=== PATIENT | female | born 1985 | race Caucasian/White ===

== ENCOUNTER 2018-05-01 01:32 | Emergency (ER) | payer BC ==
[2018-05-01] MEDS ORDERED: Metoclopramide IV* 5 MG/ML 2 ML VIAL IV SLOW PU ONE (02:03)
[2018-05-01] MEDS ORDERED: Morphine INJ* 2 MG/ML 1 ML SYRINGE (TWO MG - NEW SYRINGE VERSION) IV ONE (02:03)
[2018-05-01] MEDS ORDERED: Methylergonovine INJ* 0.2 MG/ML 1ML AMP IM ONE (02:04)
--- NOTE | 2018-05-01 02:13 | ED ---
GI/ HPI - HPI Summary HPI Summary: Patient is a 32 y/o F w/ c/o vaginal bleeding and cramping onsetting today around midnight. Prior to this, patient was experiencing some spotting onsetting last week. On triage, pain is rated 10/10 and nothing is noted to aggravate/alleviate Sx. While urinating in cup in ED, patient notes that she passed a piece of tissue. Home medications and allergies are reviewed. She reports first appointment with OBGYN was upcoming. - History of Current Complaint Chief Complaint: EDVaginalBleeding Time Seen by Provider: 05/01/18 01:48 Stated Complaint: 12 WEEKS PREG AND BLEEDING HEAVILY Hx Obtained From: Patient Onset/Duration: Started Hours Ago - onset midnight today, Started Weeks Ago - initial spotting, Still Present Timing: Constant Current Severity: Severe - 10/10 Pain Intensity: 10 Associated Signs and Symptoms: Positive: Other: - cramping, heavy vaginal bleeding Additional Signs & Symptoms: Positive: Other: - cramping, heavy vaginal bleeding Aggravating Factor(s): Nothing Alleviating Factor(s): Nothing - Allergy/Home Medications Allergies/Adverse Reactions: Allergies Allergy/AdvReac Type Severity Reaction Status Date / Time Penicillins Allergy Unknown Verified 05/01/18 01:36 Reaction Details Home Medications: Home Medications NK [No Home Medications Reported] 05/01/18 [History Confirmed 05/01/18] PMH/Surg Hx/FS Hx/Imm Hx Sensory History: Denies: Hx Legally Blind, Hx Deafness Opthamlomology History: Denies: Hx Legally Blind EENT History: Denies: Hx Deafness Infectious Disease History: No Infectious Disease History: Denies: Traveled Outside the [place] in Last 30 Days - Family History Known Family History: Negative: Blood Disorder - Social History Alcohol Use: None Substance Use Type: Reports: None Smoking Status (MU): Never Smoked Tobacco Review of Systems Negative: Fever - on vitals, temperature is 98 F Positive: other - heavy vaginal bleeding, cramping All Other Systems Reviewed And Are Negative: Yes Physical Exam - Summary Physical Exam Summary: VITAL SIGNS: Reviewed. GENERAL: Patient is a well-developed and nourished female who is lying comfortable in the stretcher. Patient is not in any acute respiratory distress. HEAD AND FACE: No signs of trauma. No ecchymosis, hematomas or skull depressions. No sinus tenderness. EYES: PERRLA, EOMI x 2, No injected conjunctiva, no nystagmus. EARS: Hearing grossly intact. Ear canals and tympanic membranes are within normal limits. MOUTH: Oropharynx within normal limits. NECK: Supple, trachea is midline, no adenopathy, no JVD, no carotid bruit, no c- spine tenderness, neck with full ROM. CHEST: Symmetric, no tenderness at palpation LUNGS: Clear to auscultation bilaterally. No wheezing or crackles. CVS: Regular rate and rhythm, S1 and S2 present, no murmurs or gallops appreciated. ABDOMEN: Soft, non-tender. No signs of distention. No rebound no guarding, and no masses palpated. Bowel sounds are normal. EXTREMITIES: FROM in all major joints, no edema, no cyanosis or clubbing. NEURO: Alert and oriented x 3. No acute neurological deficits. Speech is normal and follows commands. SKIN: Dry and warm PELVIC EXAM: Exam was done in presence of female ED staff. Uterus is 8-10 weeks in size. Cervix is gross and at posterior there is a mild amount of blood. Minimal oozing in cervix. No content is noted in vaginal canal. Triage Information Reviewed: Yes Vital Signs On Initial Exam: Initial Vitals Temp Pulse Resp BP Pulse Ox 98 F 68 16 111/80 100 05/01/18 01:36 05/01/18 01:36 05/01/18 01:36 05/01/18 01:36 05/01/18 01:36 Vital Signs Reviewed: Yes Diagnostics - Vital Signs Vital Signs Temp Pulse Resp BP Pulse Ox 05/01/18 02:00 76 99 05/01/18 01:51 84 100 05/01/18 01:49 87 123/93 99 05/01/18 01:36 98 F 68 16 111/80 100 - Laboratory Result Diagrams: 05/01/18 02:14 05/01/18 02:14 Lab Statement: Any lab studies that have been ordered have been reviewed, and results considered in the medical decision making process. Re-Evaluation - Re-Evaluation First Eval Re-Evaluation Time: 02:04 Comment: Gasngo Fady was contacted about patient. He stated that patient does not meet criteria to come in to do US at present hours. Second Eval Re-Evaluation Time: 03:44 Comment: Discussed results of labs and consult with Dr. Eagle. She will be discharged to home and follow up with Dr. Eagle tomorrow. Patient is agreeable with this plan. GIGU Course/Dx - Course Assessment/Plan: Patient is a 32 y/o F w/ c/o vaginal bleeding and cramping onsetting today around midnight. Prior to this, patient was experiencing some spotting onsetting last week. On triage, pain is rated 10/10 and nothing is noted to aggravate/alleviate Sx. While urinating in cup in ED, patient notes that she passed a piece of tissue. Home medications and allergies are reviewed. She reports first appointment with OBGYN was upcoming. Pelvic Exam was done in presence of female ED staff. Uterus is 8-10 weeks in size. Cervix is gross and at posterior there is a mild amount of blood. Minimal oozing in cervix. No content is noted in vaginal canal. No other abnormal physical exam findings noted. Gasngo Fady was contacted about patient. He stated that patient does not meet criteria to come in to do US at present hours. Patient is A+ blood type, negative antibody screen. Labs showed RDW 17, glucose 111, AST 12, and Beta HCG Quant 49385.00. Dr. Eagle was consulted on patient's case at 336. She recommends giving patient 600 mg of citotec and having patient follow up with her tomorrow. This plan was discussed with patient and she was agreeable. During ED course, patient was given morphine 4 mg IV ED ONCE ONE, Reglan 10 mg IV SLOW PU ONCE ONE, Lactated Ringers 100 ml bag, and methergine .2 mg IM ONCE ONE and 600 mg citotec. She was diagnosed with spontaneous . - Diagnoses Provider Diagnoses: Spontaneous - Physician Notifications Discussed Care Of Patient With: Raquel Eagle Time Discussed With Above Provider: 03:37 Instructed by Provider To: Other - Dr. Eagle was consulted on patient's case at 336. She recommends giving patient 600 mg of citotec and having patient follow up with her tomorrow. Discharge - Sign-Out/Discharge Documenting (check all that apply): Patient Departure - discharge - Discharge Plan Condition: Stable Disposition: HOME Patient Education Materials: Miscarriage (ED) Forms: *Work Release Referrals: Raquel Eagle MD [Medical Doctor] - 1 Day Additional Instructions: RETURN TO ED FOR ANY CHANGING OR WORSENING SYMPTOMS. FOLLOW UP WITH OBGYN TOMORROW. - Attestation Statements Document Initiated by Scribe: Yes Documenting Scribe: Darrel Garcia Provider For Whom Scribe is Documenting (Include Credential): Tiera Yi MD Scribe Attestation: IDarrel, scribed for Tiera Yi MD on 05/01/18 at 0442.
[2018-05-01 02:26] LABS: ABS Basophils 0.1 10^3/ul (0-0.2); ABS Eosinophils 0.1 10^3/ul (0-0.6); ABS Lymphocytes 1.5 10^3/ul (1.0-4.8); ABS Monocytes 0.4 10^3/ul (0-0.8); ABS Neutrophils 8.6 10^3/ul (1.5-7.7); ABS Nucleated RBC 0 10^3/ul; Eosinophil % 0.9 % (0-6); Hematocrit 37 % (35-47); Hemoglobin 12.8 g/dl (12.0-16.0); Lymphocyte % 14.4 % (25-47); Mean Corpuscular HGB Conc 35 g/dl (31-36); Mean Corpuscular Hemoglobin 29 pg (27-31); Mean Corpuscular Volume 83 fL (80-97); Mean Platelet Volume 8.6 um3 (7.4-10.4); Nucleated Red Blood Cells % 0; Platelet Count 171 10^3/ul (150-450); Red Blood Count 4.46 10^6/ul (4.00-5.40); Red Cell Distribution Width 17 % (10.5-15); White Blood Count 10.7 10^3/ul (3.5-10.8)
[2018-05-01 02:40] LABS: INR 0.98 (0.77-1.02)
[2018-05-01] MEDS ORDERED: Misoprostol TAB* 200 MCG VAGINAL ONE (03:39)
[2018-05-01 04:20] VITALS: BP 113/78
== END 2018-05-01 04:19 | disposition home or self-care (01) ==
LOC: ED 01:32
DX: O03.9 Complete or unspecified spontaneous abortion without complication (principal); Z88.0 Allergy status to penicillin
CPT/HCPCS: 36415; 80053; 83605; 84702; 85025; 85610; 85730; 86850; 86900; 86901; 88305; 96372; 96374; 96375; 96376; 99283; A9270-GY; J2210; J2270; J2765

== ENCOUNTER 2018-11-15 09:27 | Emergency (ER) | payer BC ==
[2018-11-15 09:39] VITALS: BP 134/88
--- NOTE | 2018-11-15 11:49 | UC ---
Eye Complaint HPI - HPI Summary HPI Summary: 33-year-old female presents with onset of left eye redness, itchiness, and drainage last evening. States she awoke this morning when the eye crusted shut. Denies fever, chills, URI symptoms, visual disturbances, eye pain or swelling. Patient does not wear contacts. - History of Current Complaint Chief Complaint: UCEar Stated Complaint: EYE ISSUE Time Seen by Provider: 11/15/18 11:48 Hx Obtained From: Patient Hx Last Menstrual Period: 10/16/18 Pain Intensity: 5 - Allergies/Home Medications Allergies/Adverse Reactions: Allergies Allergy/AdvReac Type Severity Reaction Status Date / Time Penicillins Allergy Unknown Verified 11/15/18 09:39 Reaction Details PMH/Surg Hx/FS Hx/Imm Hx Previously Healthy: Yes - Denies significant PMH - Surgical History Surgical History: None - Family History Known Family History: Positive: Non-Contributory - Social History Occupation: Employed Full-time Lives: With Family Alcohol Use: None Substance Use Type: None Smoking Status (MU): Never Smoked Tobacco Review of Systems All Other Systems Reviewed And Are Negative: Yes Physical Exam - Summary Physical Exam Summary: GENERAL APPEARANCE: Well developed, well nourished, alert and cooperative, and appears to be in no acute distress. EYES: Left eye conjunctival erythema. No drainage. Vision is grossly intact. EARS: External auditory canals and tympanic membranes clear, hearing grossly intact. NOSE: No nasal discharge. THROAT: Pharynx normal No tonsilar inflammation, swelling, exudate, or lesions. Uvula midline. Oral cavity normal. Teeth and gingiva in good general condition. NECK: Neck supple, non-tender without lymphadenopathy. CARDIAC: Normal S1 and S2. No S3, S4 or murmurs. Rhythm is regular. There is no peripheral edema, cyanosis or pallor. Extremities are warm and well perfused. Capillary refill is less than 2 seconds. Peripheral pulses intact. LUNGS: Clear to auscultation without rales, rhonchi, wheezing or diminished breath sounds. ABDOMEN: Positive bowel sounds. Soft, nondistended, nontender. No guarding or rebound. No masses or hepatosplenomegally. MUSKULOSKELETAL: ROM intact to all extremities. No joint erythema or tenderness. Normal muscular development. Normal gait. SKIN: Skin normal color, texture and turgor with no lesions or eruptions. Triage Information Reviewed: Yes Vital Signs: Initial Vital Signs Temp 98.4 F 11/15/18 09:34 Pulse 90 11/15/18 09:34 Resp 17 11/15/18 09:34 BP 134/88 11/15/18 09:34 Pulse Ox 99 11/15/18 09:34 Vital Signs Reviewed: Yes Eye Complaint Course/Dx - Course Course Of Treatment: 33-year-old female presents with onset of left eye redness, itchiness, and drainage last evening. States she awoke this morning when the eye crusted shut. Denies fever, chills, URI symptoms, visual disturbances, eye pain or swelling. Patient does not wear contacts. Afebrile. Vital signs stable. Exam was remarkable for some left eye conjunctival erythema. Will treat for bacterial conjunctivitis using Polytrim ophthalmic 1 drop 4 times a day 5 days. She is to return here or follow-up with her primary care provider in 3 days if symptoms do not improve. Anticipatory guidance and warning symptoms reviewed with the patient. Verbalizes understanding and agrees with plan of care. - Differential Dx/Diagnosis Differential Diagnosis/HQI/PQRI: Conjunctivitis, Periorbital Cellulitis, Orbital Cellulitis, Uveitis Provider Diagnosis: Conjunctivitis, left eye Discharge - Sign-Out/Discharge Documenting (check all that apply): Patient Departure All imaging exams completed and their final reports reviewed: No Studies - Discharge Plan Condition: Stable Disposition: HOME Prescriptions: Polymyx/Trimethoprim OPTH* [Polytrim OPHTH*] 1 drop LEFT EYE QID #1 btl Patient Education Materials: Conjunctivitis (ED) Forms: *Work Release Referrals: No Primary Care Phys,NOPCP [Primary Care Provider] - Additional Instructions: Your history and exam are consistent with a bacterial conjunctivitis of the left eye. Start Polytrim ophthalmic drops 1 drop into the affected eye 4 times a day for 5 days. To avoid reinfection or spreading infection: * Use washcloths and towels once then launder. * Do not share washcloths or towels with others. * Change your pillow case each morning until you have finished treatment. * You should throw out any eye makeup, especially mascara, and use a new one once you have finished treatment. Return here of follow up here or with your primary care provider in 3 days if no improvement. Seek immediate medical attention in the emergency room if you develop fever greater than 100.5 F, have pain or swelling of the eye, visual disturbances, loss of vision, or any worsening of symptoms. - Billing Disposition and Condition Condition: STABLE Disposition: Home
== END 2018-11-15 12:20 | disposition home or self-care (01) ==
LOC: UCEAST 09:27
DX: H10.9 Unspecified conjunctivitis (principal); Z88.0 Allergy status to penicillin
CPT/HCPCS: 99212; G0463

== ENCOUNTER 2019-07-30 13:13 | Emergency (ER) | payer SELFPAY ==
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
[2019-07-30 13:39] VITALS: BP 138/87
[2019-07-30 18:32] LABS: Hepatitis B Surface Antigen Nonreactive (Nonreactive)
[2019-07-30 18:49] LABS: Hepatitis B Surface Ab Not Immune (Immune); Hepatitis C Antibody Negative (Negative)
[2019-07-30 19:28] LABS: HIV 4th Generation Nonreactive (Nonreactive)
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
== END 2019-07-30 14:06 | disposition home or self-care (01) ==
LOC: UCEAST 13:13
DX: S51.851A Open bite of right forearm, initial encounter (principal); Z88.0 Allergy status to penicillin; W50.3XXA Accidental bite by another person, initial encounter; Y92.9 Unspecified place or not applicable
CPT/HCPCS: 36415; 86706; 86803; 87340; 87389; 99211; G0463

== ENCOUNTER 2020-09-12 12:38 | Inpatient (IN) ==
[2020-09-12] MEDS ORDERED: Magnesium Sulf 4 GM/100 ML IV 4,000 MG/100 ML BAG IVPB ONE (13:10)
[2020-09-12] MEDS ORDERED: ceFOXitin 2 GM IVPREMIX 2 GM/50 ML BAG IVPB ONE (13:10)
[2020-09-12] MEDS ORDERED: Lactated Ringers 1000 ml BAG 1,000 ML IV ONE (13:10)
[2020-09-12] MEDS ORDERED: Buffered Lidocaine 1% SYRIN 1 ml INTRADERM ONE (13:10)
[2020-09-12 13:57] LABS: ABS Lymphocytes 1.5 10^3/ul (1.0-4.8); ABS Monocytes 0.5 10^3/ul (0-0.8); ABS Neutrophils 10.7 10^3/ul (1.5-7.7); Eosinophil % 0.2 %; Hematocrit 32 % (35-47); Hemoglobin 10.7 g/dL (12.0-16.0); Lymphocyte % 11.7 %; Mean Corpuscular HGB Conc 33 g/dL (31-36); Mean Corpuscular Hemoglobin 25 pg (27-31); Mean Corpuscular Volume 75 fL (80-97); Mean Platelet Volume 8.9 fL (7.4-10.4); Platelet Count 205 10^3/uL (150-450); Red Blood Count 4.34 10^6 /uL (3.70-4.87); Red Cell Distribution Width 19 % (10-15); White Blood Count 12.8 10^3/uL (3.5-10.8)
[2020-09-12] MEDS ORDERED: Magnesium Sulfate OB PREMIX 40 GM/1,000 ML BAG IVPB SCH (14:00)
[2020-09-12] MEDS ORDERED: Lactated Ringers 1000 ml BAG 1,000 ML IV SCH ×2 (14:00→22:00)
[2020-09-12 14:07] LABS: Albumin 3.3 g/dL (3.2-5.2); Albumin/Globulin Ratio 1.1 (1-3); BUN/Creatinine Ratio 14.5 (8-20); Calcium 8.6 mg/dL (8.6-10.3); EGFR African American 104.2 (>60); EGFR Non-African American 86.1 (>60); Globulin 3.1 g/dL (2-4); Potassium 3.8 mmol/L (3.5-5.0); Total Bilirubin 0.4 mg/dL (0.2-1.0); Total Protein 6.4 g/dL (6.4-8.9); Uric Acid 4.8 mg/dL (2.3-6.6)
[2020-09-12 14:10] LABS: Urine Benzodiazepine Screen None Detected (None Detect); Urine Cannabinoids Screen None Detected (None Detect); Urine Opiates Screen None Detected (None Detect)
[2020-09-12 14:28] LABS: Activated Partial Thrombo Time 23.3 seconds (26.0-38.0); INR 0.94 (0.82-1.09)
[2020-09-12 14:48] LABS: Platelet Count 211 10^3/ul (150-450)
[2020-09-12 15:31] LABS: Schistocytes ABSENT
[2020-09-12 16:19] LABS: Fibrinogen 469.2 mg/dL (110.8-404.3)
[2020-09-12] MEDS ORDERED: D5LR 1000 ml BAG 1,000 ML IV SCH (19:00)
[2020-09-12] MEDS ORDERED: Sodium Citrate/Citric Acid LIQ 15 ML UDC ONE (19:09)
[2020-09-12] MEDS ORDERED: fentaNYL 100 mcg/2 ml 50 MCG/ML VIAL ONE (19:31)
[2020-09-12] MEDS ORDERED: Morphine PF AMP (0.5MG/ML) 5 MG/10 ML AMP ONE (19:32)
[2020-09-12] MEDS ORDERED: Carboprost Tromethamine 250 mcg 1 ml VIAL ONE (19:39)
[2020-09-12] MEDS ORDERED: Phenylephrine 40 mcg/mL 10mL (400mcg) SYRINGE ONE (19:57)
[2020-09-12] MEDS ORDERED: Ondansetron 4 mg VIAL 2 MG/ML 2 ml VIAL ONE (20:02)
[2020-09-12] MEDS ORDERED: EPHEDrine (Pressors) 50 MG/ML VIAL ONE (20:04)
[2020-09-12] MEDS ORDERED: Oxytocin 10 UNITS/ML 1 ML VIAL ONE (20:13)
[2020-09-12] MEDS ORDERED: fentaNYL 100 mcg/2 ml 50 MCG/ML VIAL IV PRN (20:42)
[2020-09-12] MEDS ORDERED: Acetaminophen IV 1 GM/100ML 1,000 MG/100 ML VIAL IVPB ONE (20:42)
[2020-09-12] MEDS ORDERED: Naloxone 0.4 mg VIAL 0.4 mg/ml 1 ml VIAL IV PRN ×2 (20:42→20:43)
[2020-09-12] MEDS ORDERED: Metoclopramide 5 MG/ML VIAL (10 mg) IV PRN (20:43)
[2020-09-12] MEDS ORDERED: Ondansetron 4 mg VIAL 2 MG/ML 2 ml VIAL IV PRN (20:43)
[2020-09-12] MEDS ORDERED: Naloxone 4 mg VIAL (10 ml) 2 MG in NS 0.9% 250 ml 250 ML IV PRN (20:43)
[2020-09-12] MEDS ORDERED: oxyCODONE/Acetamin 5/325 mg TAB PO PRN (20:43)
[2020-09-12] MEDS ORDERED: Oxytocin in LR 20 UNITS/1,000 ML BAG IVPB ONE (21:30)
[2020-09-12] MEDS ORDERED: Glycerin ADULT 2.4 gm SUPP PR PRN (21:54)
[2020-09-12] MEDS ORDERED: Witch Hazel PAD JAR TOPICAL PRN (21:54)
[2020-09-12] MEDS ORDERED: Dibucaine 1% OINT 28.35 GM TUBE PR PRN (21:54)
[2020-09-12] MEDS ORDERED: Oxytocin in LR 20 UNITS/1,000 ML BAG IVPB SCH (22:00)
[2020-09-13 06:07] LABS: ABS Lymphocytes 1.2 10^3/ul (1.0-4.8); ABS Monocytes 0.6 10^3/ul (0-0.8); ABS Neutrophils 8.7 10^3/ul (1.5-7.7); Eosinophil % 0.4 %; Hematocrit 25 % (35-47); Hemoglobin 8.5 g/dL (12.0-16.0); Lymphocyte % 11.7 %; Mean Corpuscular HGB Conc 34 g/dL (31-36); Mean Corpuscular Hemoglobin 25 pg (27-31); Mean Corpuscular Volume 75 fL (80-97); Mean Platelet Volume 8.5 fL (7.4-10.4); Platelet Count 164 10^3/uL (150-450); Red Blood Count 3.35 10^6 /uL (3.70-4.87); Red Cell Distribution Width 18 % (10-15); White Blood Count 10.5 10^3/uL (3.5-10.8)
[2020-09-15 09:01] VITALS: BP 113/70
== END 2020-09-15 14:45 | disposition home or self-care (01) ==
LOC: MCHOBOUT 12:38 → MCHOB 13:10
PROVIDERS: ADMIT Obstetrics & Gynecology; ATTEND Obstetrics & Gynecology

== ENCOUNTER 2023-04-25 05:28 | Inpatient (IN) ==
[2023-04-25] MEDS ORDERED: ceFOXitin 2 GM IVPREMIX 2 GM/50 ML BAG IVPB ONE (06:00)
[2023-04-25] MEDS ORDERED: Lactated Ringers 1000 ml BAG 1,000 ML IV ONE (06:00)
[2023-04-25] MEDS ORDERED: Buffered Lidocaine 1% SYRIN 1 ml INTRADERM ONE (06:00)
[2023-04-25] MEDS ORDERED: Sodium Citrate/Citric Acid LIQ 15 ML UDC PO ONE (06:00)
[2023-04-25 06:54] LABS: ABS Eosinophils 0.1 10^3/uL (0.0-0.5); ABS Lymphocytes 1.6 10^3/uL (1.0-4.8); ABS Monocytes 0.5 10^3/uL (0.0-0.9); ABS Neutrophils 6.6 10^3/uL (1.5-7.6); Eosinophil % 0.8 %; Hematocrit 34.7 % (35-45); Hemoglobin 12.4 g/dL (11.5-14.3); Lymphocyte % 18.3 %; Mean Corpuscular Hemoglobin 31.1 pg (27-33); Mean Corpuscular Hgb Conc 35.6 g/dL (31-36); Mean Corpuscular Volume 87.2 fL (80-97); Mean Platelet Volume 8.8 fL (7.5-11.2); Platelet Count 158 10^3/uL (150-450); Red Blood Count 3.98 10^6/uL (3.63-4.92); Red Cell Distribution Width 14.3 % (12-17); White Blood Count 8.8 10^3/uL (3.8-11.8)
[2023-04-25] MEDS ORDERED: Lactated Ringers 1000 ml BAG 1,000 ML IV SCH ×2 (07:00→11:00)
[2023-04-25] MEDS ORDERED: Oxytocin 10 UNITS/ML 1 ML VIAL ONE (08:19)
[2023-04-25] MEDS ORDERED: Ondansetron 4 mg VIAL 2 MG/ML 2 ml VIAL ONE (08:20)
[2023-04-25] MEDS ORDERED: Phenylephrine 40 mcg/mL 10mL (400mcg) SYRINGE ONE (08:20)
[2023-04-25] MEDS ORDERED: Bupivacaine 0.5% SDV PF 30ML VIAL ONE (08:20)
[2023-04-25] MEDS ORDERED: Morphine PF AMP (0.5MG/ML) 5 MG/10 ML AMP ONE (08:21)
[2023-04-25] MEDS ORDERED: Dexamethasone IV 4 MG/ML VIAL 1 ml VIAL ONE (08:46)
[2023-04-25] MEDS: Oxytocin in LR 20,000 MILLI.UNIT/1,000 ML BAG IV SCH ×2 (09:10→13:42)
[2023-04-25] MEDS ORDERED: fentaNYL 100 mcg/2 ml 50 MCG/ML VIAL ONE (09:30)
[2023-04-25] MEDS ORDERED: Acetaminophen IV 1 GM/100ML 1,000 MG/100 ML BAG IV ONE (09:33)
[2023-04-25 10:04] LABS: Urine Benzodiazepine Screen None Detected (None Detect); Urine Cannabinoids Screen None Detected (None Detect); Urine Opiates Screen None Detected (None Detect)
[2023-04-25] MEDS ORDERED: Naloxone 0.4 mg VIAL 0.4 mg/ml 1 ml VIAL IV PRN (10:32)
[2023-04-25] MEDS ORDERED: Ondansetron 4 mg VIAL 2 MG/ML 2 ml VIAL IV PRN (10:32)
[2023-04-25] MEDS ORDERED: Naloxone 0.4 mg VIAL 0.4 mg/ml 1 ml VIAL IV PUSH PRN (10:32)
[2023-04-25] MEDS ORDERED: Acetaminophen IV 1 GM/100ML 1,000 MG/100 ML BAG IV PRN (10:32)
[2023-04-25] MEDS ORDERED: Metoclopramide 5 MG/ML VIAL (10 mg) IV PRN (10:32)
[2023-04-25] MEDS ORDERED: Witch Hazel PAD JAR TOPICAL PRN (10:54)
[2023-04-25] MEDS ORDERED: Glycerin ADULT 2.4 gm SUPP PR PRN (10:54)
[2023-04-25 11:27] LABS: Urine Appearance Clear; Urine Bilirubin Negative (Negative); Urine Blood 1+ (Negative); Urine Color Yellow; Urine Glucose Negative (Negative); Urine Ketones Negative (Negative); Urine Nitrite Negative (Negative); Urine Protein Negative (Negative); Urine Specific Gravity 1.018 (1.002-1.030); Urine Urobilinogen Negative (Negative)
[2023-04-25 11:42] LABS: Urine Bacteria Absent (Absent); Urine Red Blood Cell 1+(3-5/hpf) (Absent); Urine Squamous Epithelial Cell Present (Absent); Urine White Blood Cell Trace(0-5/hpf) (Absent)
[2023-04-26 06:34] LABS: ABS Lymphocytes 1.5 10^3/uL (1.0-4.8); ABS Monocytes 0.4 10^3/uL (0.0-0.9); ABS Neutrophils 6.4 10^3/uL (1.5-7.6); Eosinophil % 0.3 %; Hematocrit 29.5 % (35-45); Hemoglobin 10.5 g/dL (11.5-14.3); Lymphocyte % 18.5 %; Mean Corpuscular Hemoglobin 31.4 pg (27-33); Mean Corpuscular Hgb Conc 35.7 g/dL (31-36); Mean Corpuscular Volume 87.8 fL (80-97); Mean Platelet Volume 8.5 fL (7.5-11.2); Platelet Count 143 10^3/uL (150-450); Red Blood Count 3.36 10^6/uL (3.63-4.92); Red Cell Distribution Width 14.8 % (12-17); White Blood Count 8.3 10^3/uL (3.8-11.8)
[2023-04-26] MEDS: Vitamins A & D OINT TUBE TOPICAL SCH ×2 (12:17→20:37)
[2023-04-27 11:35] VITALS: BP 124/63
== END 2023-04-27 13:20 | disposition home or self-care (01) | DRG 540 ==
LOC: MCHOB 05:28
PROVIDERS: ADMIT Obstetrics & Gynecology; ATTEND Obstetrics & Gynecology